=== PATIENT | female | born 1955 | race Caucasian/White ===

== ENCOUNTER 2023-07-15 06:15 | Day surgery (SDC) | payer OTHER, SELFPAY ==
[2023-07-15] VITALS (10 sets, daily range): BP systolic 151–177; BP diastolic 67–90; BMI 45.6
[2023-07-15] MEDS: NORMOSOL-R 1000 IV (08:45)
[2023-07-15] MEDS: TYLENOL 650 MG PO (14:41)
== END 2023-07-15 15:30 | disposition home or self-care (01) ==
LOC: SDS 06:15
PROVIDERS: ATTENDING PHYSICIAN Otolaryngology; FAMILY PHYSICIAN Family Medicine
DX: J32.0 Chronic maxillary sinusitis (principal); J33.9 Nasal polyp, unspecified
CPT/HCPCS: 31256; 88304; 88311; 88312